=== PATIENT | male | born 2000 | race Caucasian/White ===

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

== ENCOUNTER 2021-02-20 22:37 | Inpatient (IN) | payer OTHER ==
[~2021-02-20] VITALS: Ht 180.3 cm; Wt 71.0 kg
[~2021-02-20 22:37] MED LIST: ANUS25SU PR
[2021-02-20] MEDS ORDERED: ISOVUE-370 76% 100ML VIAL As Ordered ONE (23:10)
--- NOTE | 2021-02-20 23:47 | REPVR ---
PROCEDURE INFORMATION: Exam: CT Cervical Spine Without Contrast Exam date and time: 02/20/2021 10:41 PM Age: 20 years old Clinical indication: Injury or trauma; Other: Near hanging; Constriction/strangulation TECHNIQUE: Imaging protocol: Computed tomography images of the cervical spine without contrast. Radiation optimization: All CT scans at this facility use at least one of these dose optimization techniques: automated exposure control; mA and/or kV adjustment per patient size (includes targeted exams where dose is matched to clinical indication); or iterative reconstruction. COMPARISON: No relevant prior studies available. FINDINGS: Bones/joints: Vertebral body height and AP alignment is preserved. No acute cervical spine fracture. Discs/Spinal canal/Neural foramina: No definite significant central canal stenosis within limitations of technique. Lungs: Lung apices are normal. Pleural spaces: No visible pneumothorax. Soft tissues: Unremarkable. IMPRESSION: No acute cervical spine fracture. Electronically signed by: David Goodson On 02/20/2021 23:46:51 PM
--- NOTE | 2021-02-20 23:49 | REPVR ---
PROCEDURE INFORMATION: Exam: CT Angiography Neck With Contrast Exam date and time: 02/20/2021 10:41 PM Age: 20 years old Clinical indication: Injury or trauma; Other: Near hang; Constriction/strangulation; Additional info: Near hanging TECHNIQUE: Imaging protocol: Computed tomography angiography of the neck with contrast. 3D rendering (Not supervised by radiologist): MIP and/or 3D reconstructed images were created by the technologist. Radiation optimization: All CT scans at this facility use at least one of these dose optimization techniques: automated exposure control; mA and/or kV adjustment per patient size (includes targeted exams where dose is matched to clinical indication); or iterative reconstruction. Contrast material: ISO; Contrast volume: 75 ml; Contrast route: INTRAVENOUS (IV); COMPARISON: CT Spine,cervical w/o contrast 02/20/2021 11:17 PM FINDINGS: Right common carotid artery: No stenosis. No dissection or occlusion. Right internal carotid artery: No stenosis of the extracranial segment. No dissection or occlusion. Right external carotid artery: No occlusion or stenosis of the origin. Left common carotid artery: No stenosis. No dissection or occlusion. Left internal carotid artery: No stenosis of the extracranial segment. No dissection or occlusion. Left external carotid artery: No occlusion or stenosis of the origin. Right vertebral artery: No stenosis. No dissection or occlusion. Left vertebral artery: No stenosis. No dissection or occlusion. Soft tissues: Normal. No significant soft tissue swelling. Bones/joints: No acute fracture. IMPRESSION: No acute vascular injury. REFERENCES: NASCET CRITERIA. The degree of internal carotid artery stenosis is based on NASCET criteria. Normal is no stenosis. Mild is less than 50% stenosis. Moderate is 50-69% stenosis. Severe is 70% to 99% stenosis. Total occlusion is no detectable patent lumen. Electronically signed by: David Goodson On 02/20/2021 23:48:53 PM
--- NOTE | 2021-02-20 23:49 | REPVR ---
PROCEDURE INFORMATION: Exam: CT Head Without Contrast Exam date and time: 02/20/2021 10:41 PM Age: 20 years old Clinical indication: Pain; Other: Near hanging TECHNIQUE: Imaging protocol: Computed tomography of the head without contrast. Radiation optimization: All CT scans at this facility use at least one of these dose optimization techniques: automated exposure control; mA and/or kV adjustment per patient size (includes targeted exams where dose is matched to clinical indication); or iterative reconstruction. COMPARISON: No relevant prior studies available. FINDINGS: Brain: Normal. No hemorrhage. Unremarkable white matter. No mass effect. Cerebral ventricles: No ventriculomegaly. Paranasal sinuses: Visualized sinuses are unremarkable. No fluid levels. Mastoid air cells: Visualized mastoid air cells are well aerated. Bones/joints: Unremarkable. No acute fracture. Soft tissues: Unremarkable. IMPRESSION: No acute intracranial abnormality. Electronically signed by: David Goodson On 02/20/2021 23:48:41 PM
[2021-02-21 00:37] LABS: HEMOGLOBIN 17.1 g/dl (13.5-17.5); MEAN CORPUSCULAR HGB CONC 33.5 g/dl (32.0-36.5); MEAN CORPUSCULAR VOLUME 92.6 fl (80.0-96.0); PLATELET COUNT, AUTOMATED 206 10^3/uL (150-450); RED BLOOD COUNT 5.51 10^6/uL (4.30-6.10); WHITE BLOOD COUNT 9.8 10^3/uL (4.0-10.0)
[2021-02-21 01:32] LABS: AMPHETAMINES LEVEL URINE NEGATIVE (NEGATIVE); BARBITURATES URINE NEGATIVE (NEGATIVE); BENZODIAZEPINES URINE NEGATIVE (NEGATIVE); CANNABINOIDS URINE NEGATIVE (NEGATIVE); COCAINE METABOLITE URINE NEGATIVE (NEGATIVE); METHADONE URINE NEGATIVE (NEGATIVE); OPIATES URINE NEGATIVE (NEGATIVE); PHENCYCLIDINE URINE NEGATIVE (NEGATIVE)
[2021-02-21 02:10] LABS: ACETAMINOPHEN LEVEL < 2.0 UG/ML (10.0-30.0); ALBUMIN 4.1 GM/DL (3.2-5.2); ALT/SGPT 20 U/L (12-78); BILIRUBIN,DIRECT < 0.1 MG/DL (0.0-0.2); BILIRUBIN,TOTAL 0.4 MG/DL (0.2-1.0); CK-MB VALUE MASS < 1.0 NG/ML (<3.6); CPK CREATINE PHOSPHOKINASE 112 U/L (39-308); ETHYL ALCOHOL (ETHANOL) < 0.003 % (0.000-0.010); MB/CK RELATIVE INDEX 0.89 (< OR =4); SALICYLATE LEVEL < 1.7 MG/DL (5.0-30.0); TOTAL PROTEIN 7.3 GM/DL (6.4-8.2); TROPONIN I < 0.02 NG/ML (< 0.10)
[2021-02-21] MEDS ORDERED: MOM 30ML SUSPENSION UDC PO PRN (06:05)
[2021-02-21] MEDS ORDERED: MAALOX 30 ML SUSP *UDC PO PRN (06:05)
[2021-02-21] MEDS ORDERED: LORazepam 1 MG TAB PO PRN (06:05)
[2021-02-21] MEDS ORDERED: ACETAMINOPHEN TAB 650MG DOSE (2X325MG) PO PRN (06:05)
[2021-02-21] MEDS ORDERED: HOME MED LIST COMPLETE! XX SCH (06:25)
--- NOTE | 2021-02-21 06:25 | ECGEPIP ---
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
[2021-02-21 07:00] LABS: RSV AMPLIFICATION NEGATIVE (NEGATIVE)
[2021-02-21 08:32] VITALS: BP 121/63
[2021-02-21] MEDS: SERTRALINE HCL 50 MG TAB PO SCH (09:00)
--- NOTE | 2021-02-21 11:41 | MHHPEPDOC ---
General Date Of Admission: Feb 21, 2021 Legal Status: 9.39 Chief Complaint "I took the pills to kill myself" History of Present Illness HISTORY OF THE PRESENT ILLNESS: Patient is a 20 -year-old , male, with no past psychiatric history who presents after attempting suicide last Saturday night, tried to take 50-60 allergy pills and didn't tell anyone, then next morning went into the bathroom and hung himself, reports was hanging, tied a blanket around a curtain rohan, states his roommate found him, "I was half unconscious and he brought me down". Reports ongoing depression for 2 weeks, wi th helplessness, hopelessness, feels stuck, anhedonia, states he doesn't enjoy anything he does, states it's unclear what triggered his depression, and unsure if related to his stressors. Patient is withdrawn with avoidant eye contact, talks in monotone, slowed voice and speech is non-spontaneous. Has been reporting suicidal thoughts with intent and plan for 2 weeks and feels he cannot shake the feeling. Reports "alot of stressors"; "I feel I don't have a purpose, my mother is getting surgery, got into a fight with my dad because I didn't go [place] for [place] leave, I visited my brother in [facility] instead", states he does not enjoy anything including going to work, and if he felt better would want to stick with his work. Psychiatric Review of Systems Depression (2 or more weeks): depressed mood, anhedonia, insomnia/hypersomnia, feelings of excess/guilt, feelings of worthlesness, decreased energy, difficulty concentrating, appetite changes ("eating less"), psychomotor changes, suicidal thoughts Amy (4 or more days of): denies Psychosis: denies PTSD: denies Anxiety: denies Anxiety/ 6 months or more of: sleep disturbance Past Psychiatric History Previous Psychiatric Diagnosis: denies Previous Psychiatric Admissions: denies Suicide Attempts: denies, christofer history of SI prior to 2 weeks before this admission Psychiatric Follow-up: none, no Psychiatric medications: denies Past Medical History Medical Problems denies, reports gets hives when running, possible cold urticaria Head Injury: No Seizures: No Hospitalizations: No Surgeries: No Family Medical/Psychiatric HX Medical Problems father DM Psychiatric Disorders: No Addiction: No Suicide Attemps/Completions: No Addiction History denies Social History Childhood: Grew up in [facility], moved [place] the [place] at age 13 w/ mother, raised by mother and father, still in [place], joined in October 2019, 3 older siblings Abuse/Trauma:denies Current Living Situation: [place] alone Education: highschool Employment: [employer] Social Support: robert Delaney, doesn't know phone number, in phone Legal: denies Marital: never , has a robert Dickson, she is in [place] Mental Status Examination General Appearance: well groomed Build: thin Demeanor: withdrawn, guarded Eye Contact: avoidant Activity: slowed Behavior: cooperative, loss of interests, anhedonia, withdrawn Speech: clear, slow, low in volume, non-spontaneous, impoverished Mood: depressed Diagnoses Major depressive disorder, single episode, severe A-FIB/CHADSVASC A-FIB History Current/History of A-Fib/PAF?: No Current PO Anticoag Therapy: No Age/Risk Factor Scoring CHADSVASC: CHADSVASC Response (Comments) Value Age Risk Factor Age < 65 years old 0 Gender Risk Factor Male 0 Hx of CHF No 0 Hx of HTN No 0 Hx of Stroke/TIA/or VTE No 0 Hx of Diabetes No 0 Hx of Vascular Disease No 0 Total 0 Treatment Treatment ordered: NONE Reason Anticoagulant not given: Not indicated/[id number] Assessment Patient presents after multiple suicide attempts on subsequent days, by intentional overdose on Saturday before admission and then again on Saturday by hanging, was partially unconscious reportedly and colleagues brought him down. Had hung himself from a shower curtain rail with a sheet. Has been reporting worsening suicidal ideations with intent and plan for 2 weeks prior to this, does not endorse a clear trigger for depressive symptoms that have also been ongoing for 2 weeks including low mood, anhedonia, low energy, low appetite, poor sleep, hopelessness, helplessness, worthlessness and poor concentration. Denies any history of psychiatric symptoms and no depression in family, but reports some stressors he does not attribute primarily to his depression including possible stress at work, interpersonal arguments with father, concern for mother who was in the hospital in [place]. Was medically stabilized prior to admission to the [facility]. Labs are unremarkable apart apart from marginally elevated alk phos of 119. TSH within normal limits. Patient agreeable to starting sertraline 50 mg p.o. daily, number side effects were discussed including increased suicidal thoughts, serotonin syndrome, GI disturbance, allergy and other common and rare side effects. Initial Treatment Plan 1. Patient was admitted on a [9.39] status. 2. Complete history was obtained. 3. With patients permission, family will be contacted and database will be expanded. 4. Patients medication regimen will be reviewed and changed accordingly. 5. Patient will be provided with protected environment. 6. Patient will be treated with individual, group, and milieu therapies. 7. Patient will receive supportive psych-education. 8. Discharge planning will commence immediately. 9. Outpatient follow-up treatment will be strongly recommended. 10. The initial treatment plan will focus initially on: * Depression. * Risk for suicide. ESTIMATED LENGTH OF STAY: 5-10 DAYS. TIME SPENT COUNSELING AND COORDINATING INITIAL CARE: 50 minutes. Tobacco Cessation Screen If Patient is a Smoker none N/A-No Antipsychotics Vital Signs Vital Signs Date Time Temp Pulse Resp B/P (MAP) Pulse Ox O2 Delivery O2 Flow Rate FiO2 02/21/21 08:32 97.5 65 18 121/63 (82) 99 Room Air Laboratory Data 24H Labs Laboratory Tests 2 02/20/21 23:01: POC Troponin I (Misc) 0.00 02/20/21 23:02: POC Glucose (Misc Panel) 78, POC Sodium (Misc Panel) 142, POC Potassium (Misc Panel) 3.7, POC Chloride (Misc Panel) 102, POC Total CO2 (Misc Panel) 28.0H, POC Blood Urea Nitrogen (Misc Panel 22, POC Ionized Calcium (Misc Panel) 4.8, POC Creatinine (Misc Panel) 1.3, POC Hematocrit (Misc Panel) 50.0 02/21/21 00:24: Nucleated Red Blood Cells % (auto) 0.0, Total Bilirubin 0.4, Direct Bilirubin < 0.1, Aspartate Amino Transf (AST/SGOT) 19, Alanine Aminotransferase (ALT/SGPT) 20, Alkaline Phosphatase 119H, Total Creatine Kinase 112, Creatine Kinase MB < 1.0, Creatine Kinase MB Relative Index 0.89, Troponin I < 0.02, Total Protein 7.3, Albumin 4.1, Albumin/Globulin Ratio 1.3, Thyroid Stimulating Hormone (TSH) 1.950, Salicylates Level < 1.7L, Acetaminophen Level < 2.0L, Ethyl Alcohol Level < 0.003 02/21/21 01:07: Urine Opiates Screen NEGATIVE, Urine Methadone Screen NEGATIVE, Urine Barbiturates Screen NEGATIVE, Urine Phencyclidine Screen NEGATIVE, Urine Amphetamines Screen NEGATIVE, Urine Benzodiazepines Screen NEGATIVE, Urine Cocaine Metabolite Screen NEGATIVE, Urine Cannabinoids Screen NEGATIVE 02/21/21 06:02: Coronavirus (COVID-19)(PCR) NEGATIVE, Influenza Type A (RT-PCR) NEGATIVE, Influenza Type B (RT-PCR) NEGATIVE, Respiratory Syncytial Virus (PCR) NEGATIVE CBC/BMP Laboratory Tests 02/21/21 00:24 Medications No Active Prescriptions or Reported Meds Allergies Coded Allergies: No Known Allergies (Verified Allergy, Unknown, 06/10/20) KEO OTT MD Feb 21, 2021 11:41
[2021-02-21 16:16] VITALS: BP 125/57
[2021-02-22 06:20] VITALS: BP 118/58
[2021-02-22] MEDS: SERTRALINE HCL 50 MG TAB PO SCH (09:00)
--- NOTE | 2021-02-22 13:33 | MHIPNPDOC ---
[facility] Progress Note Progress Note DATE OF SERVICE: 02/22/21 HISTORY: Patient is a 20 -year-old , male, with no past psychiatric history who presents after attempting suicide last Saturday night, tried to take 5 0-60 allergy pills and didn't tell anyone, then next morning went into the bathroom and hung himself, reports was hanging, tied a blanket around a curtain rohan, states his roommate found him, "I was half unconscious and he brought me down". Reports ongoing depression for 2 weeks, with helplessness, hopelessness, feels stuck, anhedonia, states he doesn't enjoy anything he does, states it's unclear what triggered his depression, and unsure if related to his stressors. Patient is withdrawn with avoidant eye contact, talks in monotone, slowed voice and speech is non-spontaneous. Has been reporting suicidal thoughts with intent and plan for 2 weeks and feels he cannot shake the feeling. Interval: States went to 2 groups yesterday, "better than starring at the wall". States mood is "the same". States he is unsure if SI would return if discharged. Has not taken medication, reports cultural factors such as how he perceives possibly by his family, the for taking medication, also concerned about side effects which we have previously discussed and want to review them again, including SI and those under age 25, GI distress, nausea, sexual side effects, serotonin syndrome which is rare and other common rare side effects. VITAL SIGNS: See below. NEW TEST RESULTS: None CURRENT MEDICATIONS: See below. MENTAL STATUS EXAMINATION: Patient is a 20-year old male, who is in no acute distress, avoiding eye contact and looking down the floor, withdrawn, good hygiene, appears stated age Speech: Is slowed, nonspontaneous, impoverished Language skills are good. Thought processes including: Linear, logical, slowed, possible thought blocking. Thought content: Endorses concerns if he leaves, continues to report depression, feelings of regret, unsure if he has vague suicidal thoughts. Abstract reasoning, and computation: Fair description of associations: Normal. Description of abnormal or psychotic thoughts: Denies. Judgment: Poor. Insight: Poor. Orientation: x4 Recent and remote memory: intact Attention span and concentration: decreased Language: nigerian Fund of knowledge: poor Mood: "I feel regret". Affect: depressed, melancholic, withdrawn, mood con gruent, appropriate DIAGNOSES: Major depressive disorder, single episode, severe ASSESSMENT: Patient continues to be depressed, withdrawn, melancholic with low energy and symptoms of reported anhedonia, and reservations of taking the medication due to concerns of how he be perceived by his peers at work, possibly by family members, also had concerns about side effects as he does not have any history of taking medications, these were reviewed with him and he was educated on side effects, versus benefits versus risks of not taking the medication including risk for suicide. Patient does not contract for safety if discharged, despite this past when he will be able to leave. MANAGEMENT PLAN: Ordered a one-time dose of 50 mg sertraline to take today, and continue on the medication on subsequent days. TIME SPENT: 15 minutes. Vital Signs Vital Signs Date Time Temp Pulse Resp B/P (MAP) Pulse Ox O2 Delivery O2 Flow Rate FiO2 02/22/21 06:20 98.4 70 12 118/58 (78) 100 Room Air Current Medications Current Medications Medications (Trade) Dose Ordered Sig/Rozina Route PRN Reason Start Time Stop Time Status Last Admin Dose Admin Acetaminophen (Tylenol Tab) 650 mg Q6HP PRN PO HEADACHE or MILD DISCOMFORT 02/21/21 06:05 Al Hydrox/Mg Hydrox/Simethicone (Mylanta) 30 ml Q4HP PRN PO HEARTBURN/INDIGESTION 02/21/21 06:05 Home Med (Home Med List Complete!) ASDIRECTED XX 02/21/21 06:25 02/21/21 06:26 DC Hydroxyzine HCl (Atarax) 50 mg Q4HP PRN PO ANXIETY/AGITATION 02/21/21 11:35 Lorazepam (Ativan) 1 mg Q6HP PRN PO ANXIETY 02/21/21 06:05 Cancel Magnesium Hydroxide (Milk Of Magnesia) 30 ml DAILYPRN PRN PO CONSTIPATION 02/21/21 06:05 Sertraline HCl (Zoloft) 50 mg DAILY PO 02/21/21 09:00 Trazodone HCl (Desyrel) 50 mg QHSP PRN PO INSOMNIA 02/21/21 06:05 Allergies Coded Allergies: No Known Allergies (Verified Allergy, Unknown, 06/10/20) KEO OTT MD Feb 22, 2021 13:33
[2021-02-22] MEDS ORDERED: SERTRALINE HCL 50 MG TAB PO ONE (14:00)
--- NOTE | 2021-02-22 16:09 | HPEPDOC ---
[facility] Medical History & Physical Date of Admission Feb 21, 2021 Date of Service: Feb 22, 2021 History and Physical CHIEF COMPLAINT: Attempted suicide with intentional drug overdose and hanging himself in the bathroom HISTORY OF PRESENT ILLNESS: 20-year-old male with no past medical history admitted to the inpatient mental health unit after an attempted suicide attempt with intentional drug overdose, taking 50-60 allergy pills without informing anyone, and attempting to hang himself with a blanket tied around a curtain rohan, found by his roommate and brought to the emergency room. Patient has no past medical history and denies any weight gain weight loss headaches fever chills shortness of breath chest pain pressure tightness lightheadedness dizziness polyuria polydipsia polyphagia nausea vomiting diarrhea abdominal pain dysuria urgency frequency myalgias joint pains rash bright red blood per rectum melena black tarry stools. Review of system otherwise negative aside from depressive symptoms. Patient requesting HIV testing but denies any unprotected sex recently. PAST MEDICAL HISTORY: Depression PAST SURGICAL HISTORY: None SOCIAL HISTORY: No alcohol recreational drug use or tobacco use FAMILY HISTORY: Father: Father with diabetes mother alive and well ALLERGIES: Please see below. REVIEW OF SYSTEMS: 10 point review of systems negative aside from positive findings in HPI HOME MEDICATIONS: Please see below. PHYSICAL EXAMINATION: VITAL SIGNS: See below GENERAL APPEARANCE: No distress HEENT: Tongue midline moist mucous membranes no thyromegaly or cervical lymphadenopathy CARDIOVASCULAR: S1-S2 sinus rhythm LUNGS: Clear to auscultation bilaterally ABDOMEN: Positive bowel sounds soft nontender nondistended EXTREMITIES: No cyanosis clubbing or pitting edema right upper extremity tattoo LABORATORY DATA: See below. IMAGING: See below MICROBIOLOGY: Please see below. ASSESSMENT: 20-year-old male with severe depression status post intentional drug overdose and attempted hanging admitted to the inpatient mental health unit. Severe depression with attempted suicide -Attempted intentional drug overdose with allergy pills and attempted hanging -Managed by psychiatrist Request for HIV testing -Denies rash, upper respiratory infection symptoms, weight loss. -HIV screen Hospitalist service will sign off please reconsult for any acute medical issues Vital Signs Vital Signs Date Time Temp Pulse Resp B/P (MAP) Pulse Ox O2 Delivery O2 Flow Rate FiO2 02/22/21 06:20 98.4 70 12 118/58 (78) 100 Room Air Home Medications No Active Prescriptions or Reported Meds Allergies Coded Allergies: No Known Allergies (Verified Allergy, Unknown, 06/10/20) A-FIB/CHADSVASC A-FIB History Current/History of A-Fib/PAF?: No Current PO Anticoag Therapy: No Age/Risk Factor Scoring CHADSVASC: CHADSVASC Response (Comments) Value Age Risk Factor Age < 65 years old 0 Gender Risk Factor Male 0 Hx of CHF No 0 Hx of HTN No 0 Hx of Stroke/TIA/or VTE No 0 Hx of Diabetes No 0 Hx of Vascular Disease No 0 Total 0 Treatment Treatment ordered: NONE JEWEL ALEX MD Feb 22, 2021 16:09
[2021-02-22 16:29] VITALS: BP 133/74
[2021-02-23 07:07] VITALS: BP 128/58
[2021-02-23] MEDS: SERTRALINE HCL 50 MG TAB PO SCH (08:12)
[2021-02-23 10:28] LABS: HIV 1&2 SCREEN CENTAUR NEGATIVE (NEGATIVE)
--- NOTE | 2021-02-23 13:51 | MHIPNPDOC ---
[facility] Progress Note Progress Note DATE OF SERVICE: 02/23/21 HISTORY: Patient is a 20 -year-old , male, with no past psychiatric history who presents after attempting suicide last Saturday night, tried to take 5 0-60 allergy pills and didn't tell anyone, then next morning went into the bathroom and hung himself, reports was hanging, tied a blanket around a curtain rohan, states his roommate found him, "I was half unconscious and he brought me down". Reports ongoing depression for 2 weeks, with helplessness, hopelessness, feels stuck, anhedonia, states he doesn't enjoy anything he does, states it's unclear what triggered his depression, and unsure if related to his stressors. Patient is withdrawn with avoidant eye contact, talks in monotone, slowed voice and speech is non-spontaneous. Has been reporting suicidal thoughts with intent and plan for 2 weeks and feels he cannot shake the feeling. Interval: Patient states mood is pretty good, environment makes him feel safe, but is unclear if if he feels safe leaving the unit, reports has been doing calisthenics to keep himself in shape, states mood is little bit more elevated, energetic, states he feels a little bit "hype" and says he took the medication late afternoon yesterday and interfered with sleep, states today feels a little bit better when taking early in the morning, otherwise denies side effects. Encouraged to take trazodone if sleep hygiene measures are not sufficient. VITAL SIGNS: See below. NEW TEST RESULTS: None CURRENT MEDICATIONS: See below. MENTAL STATUS EXAMINATION: Patient is a 20-year old male, who is in no acute distress, continues to have avoidant eye contact and looking down the floor, somewhat less withdrawn, good hygiene, appears stated age Speech: Is somewhat slowed, spontaneous, decreased amount Language skills are good. Thought processes including: Linear, logical, continues to be slowed, possible thought blocking. Thought content: Endorses concerns if he leaves, continues to report depression, feelings of regret for his suicidal actions. Abstract reasoning, and computation: Fair description of associations: Normal. Description of abnormal or psychotic thoughts: Denies. Judgment: Poor. Insight: Poor. Orientation: x4 Recent and remote memory: intact Attention span and concentration: decreased Language: yoruba Fund of knowledge: poor Mood: "Pretty good". Affect: depressed, melancholic, withdrawn, mood incongruent, appropriate DIAGNOSES: Major depressive disorder, single episode, severe ASSESSMENT: Patient continues to have symptoms of depression, although endorses feelings his mood is somewhat improved in the calm environment of the inpatient unit, feels that the medication has helped with energy, but has had some issues with sleep, encouraged to take trazodone as needed for sleep if sleep hygiene measures are insufficient. Otherwise denies medication side effects or acute physical complaints, is engaged in calisthenic physical exercise in his room reportedly, also went to 3 groups yesterday. Per collateral from command they are concerned about patient's safety and feel that he could use an extended period of stay. MANAGEMENT PLAN: Continue 50 mg sertraline daily, patient wants to start on this single medication regimen prior to augmenting with other medications. TIME SPENT: 15 minutes. Vital Signs Vital Signs Date Time Temp Pulse Resp B/P (MAP) Pulse Ox O2 Delivery O2 Flow Rate FiO2 02/23/21 07:07 97.3 62 20 128/58 (81) 97 Room Air Current Medications Current Medications Medications (Trade) Dose Ordered Sig/Rozina Route PRN Reason Start Time Stop Time Status Last Admin Dose Admin Acetaminophen (Tylenol Tab) 650 mg Q6HP PRN PO HEADACHE or MILD DISCOMFORT 02/21/21 06:05 Al Hydrox/Mg Hydrox/Simethicone (Mylanta) 30 ml Q4HP PRN PO HEARTBURN/INDIGESTION 02/21/21 06:05 Home Med (Home Med List Complete!) ASDIRECTED XX 02/21/21 06:25 02/21/21 06:26 DC Hydroxyzine HCl (Atarax) 50 mg Q4HP PRN PO ANXIETY/AGITATION 02/21/21 11:35 Lorazepam (Ativan) 1 mg Q6HP PRN PO ANXIETY 02/21/21 06:05 Cancel Magnesium Hydroxide (Milk Of Magnesia) 30 ml DAILYPRN PRN PO CONSTIPATION 02/21/21 06:05 Sertraline HCl (Zoloft) 50 mg DAILY PO 02/21/21 09:00 02/23/21 08:12 Trazodone HCl (Desyrel) 50 mg QHSP PRN PO INSOMNIA 02/21/21 06:05 Allergies Coded Allergies: No Known Allergies (Verified Allergy, Unknown, 06/10/20) KEO OTT MD Feb 23, 2021 13:51
[2021-02-23 15:31] VITALS: BP 110/80
[2021-02-23] MEDS: traZODone 50 MG TAB PO PRN (23:45)
[2021-02-24 06:36] VITALS: BP 132/63
[2021-02-24] MEDS: SERTRALINE HCL 50 MG TAB PO SCH (08:24)
--- NOTE | 2021-02-24 15:40 | MHIPNPDOC ---
[facility] Progress Note Progress Note DATE OF SERVICE: 02/24/21 HISTORY: Patient is a 20 -year-old , male, with no past psychiatric history who presents after attempting suicide last Saturday night, tried to take 5 0-60 allergy pills and didn't tell anyone, then next morning went into the bathroom and hung himself, reports was hanging, tied a blanket around a curtain rohan, states his roommate found him, "I was half unconscious and he brought me down". Reports ongoing depression for 2 weeks, with helplessness, hopelessness, feels stuck, anhedonia, states he doesn't enjoy anything he does, states it's unclear what triggered his depression, and unsure if related to his stressors. Patient is withdrawn with avoidant eye contact, talks in monotone, slowed voice and speech is non-spontaneous. Has been reporting suicidal thoughts with intent and plan for 2 weeks and feels he cannot shake the feeling. Interval: Patient was seen this morning, was lying but not going to groups, states was being lazy, did not sleep well last night, reports he is used to staying up late at work and works out later into the evening which may interfere sleep, had a discussion about sleep hygiene, medications, reports having mild headache but apart from that no side effects, reports has improved day-to-day since arriving to the unit, and agrees to as needed Tylenol if needed, refuse long-term treatment, states mood is improving, however appears dysthymic, withdrawn, flat. VITAL SIGNS: See below. NEW TEST RESULTS: None CURRENT MEDICATIONS: See below. MENTAL STATUS EXAMINATION: Patient is a 20-year old male, who is in no acute distress, continues to have avoidant eye contact at times, somewhat less withdrawn, good hygiene, appears stated age Speech: Is somewhat slowed, nonspontaneous, decreased amount Language skills are good. Thought processes including: Linear, logical, continues to be slowed, possible thought blocking. Thought content: Endorses concerns if he leaves, continues to report depression, feelings of regret for his suicidal actions. Abstract reasoning, and computation: Fair description of associations: Normal. Description of abnormal or psychotic thoughts: Denies. Judgment: Poor. Insight: Poor. Orientation: x4 Recent and remote memory: intact Attention span and concentration: decreased Language: estonian Fund of knowledge: poor Mood: "good". Affect: Continues to be depressed, melancholic, withdrawn, mood incongruent, appropriate DIAGNOSES: Major depressive disorder, single episode, severe ASSESSMENT: Patient continues to appear somewhat flat, withdrawn, anhedonic, but states mood is improving on medication. Due to high risk of admission with double suicide attempts by various means continues to require time on the unit for acute stabilization, presents high risk for safety, reports girlfriend is in [place] and has not told her about his admission because he does not want to scare her till she returns to the . MANAGEMENT PLAN: Continue 50 mg sertraline daily, patient wants to start on this single medication regimen prior to augmenting with other medications. Refuses medication augmentations at this time, refuse long-term treatment through the . TIME SPENT: 15 minutes. Vital Signs Vital Signs Date Time Temp Pulse Resp B/P (MAP) Pulse Ox O2 Delivery O2 Flow Rate FiO2 02/24/21 06:36 97.2 62 14 132/63 (86) 97 Room Air Current Medications Current Medications Medications (Trade) Dose Ordered Sig/Rozina Route PRN Reason Start Time Stop Time Status Last Admin Dose Admin Acetaminophen (Tylenol Tab) 650 mg Q6HP PRN PO HEADACHE or MILD DISCOMFORT 02/21/21 06:05 Al Hydrox/Mg Hydrox/Simethicone (Mylanta) 30 ml Q4HP PRN PO HEARTBURN/INDIGESTION 02/21/21 06:05 Home Med (Home Med List Complete!) ASDIRECTED XX 02/21/21 06:25 02/21/21 06:26 DC Hydroxyzine HCl (Atarax) 50 mg Q4HP PRN PO ANXIETY/AGITATION 02/21/21 11:35 Lorazepam (Ativan) 1 mg Q6HP PRN PO ANXIETY 02/21/21 06:05 Cancel Magnesium Hydroxide (Milk Of Magnesia) 30 ml DAILYPRN PRN PO CONSTIPATION 02/21/21 06:05 Sertraline HCl (Zoloft) 50 mg DAILY PO 02/21/21 09:00 02/24/21 08:24 Trazodone HCl (Desyrel) 50 mg QHSP PRN PO INSOMNIA 02/21/21 06:05 02/23/21 23:45 Allergies Coded Allergies: No Known Allergies (Verified Allergy, Unknown, 06/10/20) KEO OTT MD Feb 24, 2021 15:40
[2021-02-24 16:13] VITALS: BP 118/60
[2021-02-25 06:52] VITALS: BP 120/72
[2021-02-25] MEDS: SERTRALINE HCL 50 MG TAB PO SCH (09:04)
[2021-02-25 16:24] VITALS: BP 143/65
--- NOTE | 2021-02-25 18:57 | MHIPNPDOC ---
[facility] Progress Note Progress Note DATE OF SERVICE: 02/25/21 HISTORY:As per previous notes: " Patient is a 20 -year-old , male, with no past psychiatric history who presents after attempting suicide last Saturday night, tried to take 50-60 allergy pills and didn't tell anyone, then next morning went into the bathroom and hung himself, reports was hanging, tied a blanket around a curtain rohan, states his roommate found him, "I was half unconscious and he brought me down". Reports ongoing depression for 2 weeks, with helplessness, hopelessness, feels stuck, anhedonia, states he doesn't enjoy anything he does, states it's unclear what triggered his depression, and unsure if related to his stressors. Patient is withdrawn with avoidant eye contact, talks in monotone, slowed voice and speech is non-spontaneous. Has been reporting suicidal thoughts with intent and plan for 2 weeks and feels he cannot shake the feeling. " Interval: History: e says he doesn't know what has triggered his recent suicide attempt. He says he started feeling "bored", he was not enjoying life and that's when he decided to kill himself. He says a paternal uncle committed suicide. He says he keeps in touch with his family and his GF, he is allowed to use his cell to call them. He says the day he took the pills he had planned on doing this. He tells me a friend saved him, he is thankful to be alive. VITAL SIGNS: See below. NEW TEST RESULTS: None CURRENT MEDICATIONS: See below. MENTAL STATUS EXAMINATION: Patient is a 20-year old male, who is in no acute distress, continues to have avoidant eye contact at times, somewhat less withdrawn, good hygiene, appears stated age Speech: Is somewhat slowed, spontaneous, fluent, but this was not the case at the beginning of the interview Language skills are good. Thought processes including: Linear, logical, a little slow, not thought blocking observed Thought content: He denies SI, still endorses depression but at the same time he says today he started feeling better. Abstract reasoning, and computation: Fair description of associations: Normal. Description of abnormal or psychotic thoughts: Denies. Judgment: Improving Insight: Improving. Orientation: x4 Recent and remote memory: intact Attention span and concentration: fair Language: icelandic Fund of knowledge: under average Mood: "OK". Affect: Mildly constricted but at times is a little reactive, sad, anxious DIAGNOSES: Major depressive disorder, single episode, severe ASSESSMENT: Patient says he has been stable, he says he talked to his GF today, he felt good after he spoke with her. He denies feeling suicidal today, says he is mirian and thankful to be alive. MANAGEMENT PLAN: Continue 50 mg Sertraline daily, he refuses an increase in his medication. Will continue to monitor TIME SPENT: 15 minutes. Vital Signs Vital Signs Date Time Temp Pulse Resp B/P (MAP) Pulse Ox O2 Delivery O2 Flow Rate FiO2 02/25/21 16:24 98.0 80 18 143/65 (91) 02/25/21 06:52 Room Air 02/24/21 16:13 98 Current Medications Current Medications Medications (Trade) Dose Ordered Sig/Rozina Route PRN Reason Start Time Stop Time Status Last Admin Dose Admin Acetaminophen (Tylenol Tab) 650 mg Q6HP PRN PO HEADACHE or MILD DISCOMFORT 02/21/21 06:05 Al Hydrox/Mg Hydrox/Simethicone (Mylanta) 30 ml Q4HP PRN PO HEARTBURN/INDIGESTION 02/21/21 06:05 Home Med (Home Med List Complete!) ASDIRECTED XX 02/21/21 06:25 02/21/21 06:26 DC Hydroxyzine HCl (Atarax) 50 mg Q4HP PRN PO ANXIETY/AGITATION 02/21/21 11:35 Lorazepam (Ativan) 1 mg Q6HP PRN PO ANXIETY 02/21/21 06:05 Cancel Magnesium Hydroxide (Milk Of Magnesia) 30 ml DAILYPRN PRN PO CONSTIPATION 02/21/21 06:05 Sertraline HCl (Zoloft) 50 mg DAILY PO 02/21/21 09:00 02/25/21 09:04 Trazodone HCl (Desyrel) 50 mg QHSP PRN PO INSOMNIA 02/21/21 06:05 02/23/21 23:45 Allergies Coded Allergies: No Known Allergies (Verified Allergy, Unknown, 06/10/20) ORLANDO MILLER MD Feb 25, 2021 18:57
[2021-02-26] MEDS: hydrOXYzine 50 MG TAB PO PRN ×2 (01:04→22:11)
[2021-02-26] MEDS: traZODone 50 MG TAB PO PRN ×2 (01:04→22:11)
[2021-02-26 07:07] VITALS: BP 111/53
[2021-02-26] MEDS: SERTRALINE HCL 50 MG TAB PO SCH (08:25)
[2021-02-26 16:20] VITALS: BP 131/62
[2021-02-27 06:53] VITALS: BP 114/62
[2021-02-27] MEDS: SERTRALINE HCL 50 MG TAB PO SCH (09:47)
--- NOTE | 2021-02-27 12:25 | MHIPNPDOC ---
[facility] Progress Note Progress Note DATE OF SERVICE: 02/27/21 HISTORY: Patient is a 20 -year-old , male, with no past psychiatric history who presents after attempting suicide last Saturday night, tried to take 50-60 allergy pills and didn't tell anyone, then next morning went into the bathroom and hung himself, reports was hanging, tied a blanket around a curtain rohan, states his roommate found him, "I was half unconscious and he brought me down". Reports ongoing depression for 2 weeks, with helplessness, hopelessness, feels stuck, anhedonia, states he doesn't enjoy anything he does, states it's unclear what triggered his depression, and unsure if related to his stressors. Patient is withdrawn with avoidant eye contact, talks in monotone, slowed voice and speech is non-spontaneous. Has been reporting suicidal thoughts with intent and plan for 2 weeks and feels he cannot shake the feeling. Interval: Patient was seen lying in his bed in the a.m., has been attending a [employer] groups, states he sleeps in because he stays up late and plays chess with one of the other patients on the unit, encouraged to have a normal sleep schedule, discussed sleep hygiene, reports tolerates the medication well, does not feel overly energetic, denies other side effects, states his mood is improved, has also noticed that he is much improved concentration allows him to be engaged in activities such as chess, and that is energy is no longer low. States I am excited, but a little anxious to get out of here and do many things, reports has been talking to his girlfriend back home is more engaged in conversations, wants to go to the gym when he leaves and take up the chest as a hobby, hygiene is good and reports took a shower, appetite is normal. No acute physical complaints. VITAL SIGNS: See below. NEW TEST RESULTS: None CURRENT MEDICATIONS: See below. MENTAL STATUS EXAMINATION: Patient is a 20-year old male, who is in no acute distress, continues to improved eye contact, more talkative, good hygiene, appears stated age Speech: Is spontaneous, normal amount, lower volume Language skills are good. Thought processes including: Linear, logical, goal-directed. Thought content: No longer endorses concern if he leaves, denies any SI, intent or plan. Denies any homicidal ideation, intent or plan. Has been making goals while on the unit and attending groups. Abstract reasoning, and computation: Fair description of associations: Normal. Description of abnormal or psychotic thoughts: Denies. Judgment: Improving, fair Insight: Good Orientation: x4 Recent and remote memory: intact Attention span and concentration: decreased Language: ecuadorean Fund of knowledge: Average based on interview Mood: "I am excited, but also a little anxious". Affect: No longer appears me lancholic, mildly constricted, euthymic, appropriate, mood congruent DIAGNOSES: Major depressive disorder, single episode, severe ASSESSMENT: Patient continues to improve on unit with medication reportedly improving energy, concentration, anhedonia. Reports he feels more talkative engaged in conversations with others, activities including playing chess, which he wants to take up as a hobby when he leaves, has been working out more, denies any side effects from medication or acute physical complaints. Possible discharge tomorrow if continues to improve. MANAGEMENT PLAN: Continue 50 mg sertraline daily, well-tolerated. Refuses medication augmentations at this time, refuse long-term treatment through the , despite being routinely offered. TIME SPENT: 20 minutes. Vital Signs Vital Signs Date Time Temp Pulse Resp B/P (MAP) Pulse Ox O2 Delivery O2 Flow Rate FiO2 02/27/21 06:53 97.9 65 16 114/62 (79) 97 Room Air Current Medications Current Medications Medications (Trade) Dose Ordered Sig/Rozina Route PRN Reason Start Time Stop Time Status Last Admin Dose Admin Acetaminophen (Tylenol Tab) 650 mg Q6HP PRN PO HEADACHE or MILD DISCOMFORT 02/21/21 06:05 Al Hydrox/Mg Hydrox/Simethicone (Mylanta) 30 ml Q4HP PRN PO HEARTBURN/INDIGESTION 02/21/21 06:05 Home Med (Home Med List Complete!) ASDIRECTED XX 02/21/21 06:25 02/21/21 06:26 DC Hydroxyzine HCl (Atarax) 50 mg Q4HP PRN PO ANXIETY/AGITATION 02/21/21 11:35 02/26/21 22:11 Lorazepam (Ativan) 1 mg Q6HP PRN PO ANXIETY 02/21/21 06:05 Cancel Magnesium Hydroxide (Milk Of Magnesia) 30 ml DAILYPRN PRN PO CONSTIPATION 10/26/21 06:05 Sertraline HCl (Zoloft) 50 mg DAILY PO 02/21/21 09:00 02/27/21 09:47 Trazodone HCl (Desyrel) 50 mg QHSP PRN PO INSOMNIA 02/21/21 06:05 02/26/21 22:11 Allergies Coded Allergies: No Known Allergies (Verified Allergy, Unknown, 06/10/20) KEO OTT MD Feb 27, 2021 12:25
[2021-02-27 15:56] VITALS: BP 136/82
[2021-02-27] MEDS: traZODone 50 MG TAB PO PRN (22:00)
[2021-02-27] MEDS: hydrOXYzine 50 MG TAB PO PRN (22:00)
[2021-02-28 07:11] VITALS: BP 107/65
[2021-02-28] MEDS: SERTRALINE HCL 50 MG TAB PO SCH (08:25)
[2021-02-28] MEDS ORDERED: TRAZ-252 PO (08:59)
[2021-02-28] MEDS ORDERED: SERT50TA29 PO (08:59)
[2021-02-28] MEDS ORDERED: HYDR50TA70 PO (08:59)
--- NOTE | 2021-02-28 13:30 | MHDSPDOC ---
[facility] Discharge Summary Discharge Summary DATE OF ADMISSION: Feb 21, 2021 at 06:01 DATE OF DISCHARGE: Feb 28, 2021 at 12:56 Discharge diagnoses: Major depressive disorder, single episode, severe Reason for admission: Patient is a 20 -year-old , male, with no past psychiatric history who presents after attempting suicide last Saturday night, tried to take 50-60 allergy pills and didn't tell anyone, then next morning went into the bathroom and hung himself, reports was hanging, tied a blanket around a curtain rohan, states his roommate found him, "I was half unconscious and he brought me down". Reports ongoing depression for 2 weeks, with helplessness, hopelessness, feels stuck, anhedonia, states he doesn't enjoy anything he does, states it's unclear what triggered his depression, and unsure if related to his stressors. Patient is withdrawn with avoidant eye contact, talks in monotone, slowed voice and speech is non-spontaneous. Has been reporting suicidal thoughts with intent and plan for 2 weeks and feels he cannot shake the feeling. Vital signs: See below Consultants involved: See medical H&P by hospitalist Treatment and progress on the unit: Patient was admitted to the [facility] on a 9.39 legal status and was afforded the following treatment modalities: 1. Individual therapy 2. Group therapy 3. Medication management 4. Milieu therapy 5. Safe environment Hospital course: Patient was admitted to the [facility] on a 9.39 legal status. Was medically cleared prior to coming up to the [facility]. Toxicology screen was negative. Patient was started on sertraline 50 mg p.o. daily for mood and as ne eded trazodone 50 mg nightly for sleep. We discussed possibly augmenting antidepressant, but patient reported good response to medication as well as having time to develop coping skills in groups in the afternoons giving him insight into the fact that he did not feel stuck and had many things to live for including seeing his girlfriend who is in [place], [place], reported increased energy, concentration with medication and stated that he had taken up playing chess and has been working out more frequently, states he plans to continue playing chess as a hobby to keep himself [place]. Patient found medications beneficial and tolerated them well. Denies mood anxiety and intrusive thoughts which improved with treatment. Patient attended groups daily during stay. Patient symptoms improved with treatment. On day of discharge patient denied depression, anxiety, insomnia, suicidal or homicidal ideations intent or plan, hallucinations, delusions. Patient was discharged home with follow-up. Patient felt safe for discharge. Was offered continued stay on voluntary admission but refused. Patient endorsed that for sleep is significantly improved and that he plans to go to the gym, get a haircut and get groceries when he leaves the hospital after [place]. Denies access to weapons, safety plan carried out with treatment team. During stay denied acute physical complaints. Eye contact improved, was more engaged in interview and nursing notes reflected lack of suicidal ideation, intent or plan ongoing evaluations on the days prior to discharge, patient also contracted for safety. Discharge assessment: On today's interview patient is alert and oriented, dressed appropriately. Smiles on approach and is pleasant and engaged on interview. Patient was able to laugh, joke, states sleep is really good, reports mood 9 of 10, is not elevated or hypomanic, is future oriented. Improved eye contact hygiene and grooming is well-kept. Denies depression and anxiety. Denies suicidal homicidal ideation, intent or planning. Denies and is not observed with anita or psychotic symptoms of delusions, hallucinations, bizarre thinking, obsessions, paranoia, ruminations, illogical thoughts, flight of ideas or having poor insight or judgment. Patient has normal mentation, declines further hospitalization of voluntary status and meets criteria for discharge today, patient encouraged to return the hospital if symptoms worsen or change and encouraged to call unit if they feel they need provider's questions to be answered or help with medications or care. Some time was spent discussing future goals, ways he can keep himself safe, his safety plan, if he feels unsafe will return to the hospital or reach out for help instead of keeping his depression or suicidal thoughts to himself, [place] and plans to attend his [facility] outpatient appointments. Mental status: Patient is a 20-year old male, who is in no acute distress, continues to improved eye contact, more talkative, good hygiene, appears stated age Speech: Is spontaneous, normal amount, normal volume Language skills are good. Thought processes including: Linear, logical, goal-directed. Thought content: Denies suicidal ideations, intent or plan. Denies homicidal ideations, intent or plan. Has been making goals while on the unit and attending groups. Abstract reasoning, and computation: Good description of associations: Normal. Description of abnormal or psychotic thoughts: Denies. Judgment: fair, improved Insight: Good Orientation: x4 Recent and remote memory: intact Attention span and concentration: decreased Language: faroese Fund of knowledge: Average based on interview Mood: "Really good, 9 out of 10". Affect: Not elevated, euthymic, full, laughs also jokes, euthymic, appropriate, mood congruent, is somewhat introverted at baseline Medications on discharge: see medication reconciliation: CSSRS on discharge: Wish to be : No nonspecific active suicidal thoughts: No lifetime attempts: 2x prior to admission, tried to hang self and tried to overdose on allergy pills interrupted attempts: 1x, friends brought him down from hanging prior to admission aborted attempts: 0 preparatory acts or behavior: None Taking into consideration safety state, status, modifiable, non-modifiable risk factors patient is at low risk on discharge for suicide according to [facility] uicide evaluation. PLAN/FOLLOWUP ARRANGEMENTS: Follow Up Care Education Label * Mental Health Appt 1 * Mental Health 1st Embedded * Additional information 1ST [facility]/CT SONI,COL [id number] FTR/60 PENDING 1ST [facility]/CT SONI,COL [id number]@1000 SPEC/[address] [place] [address]/CT SONI,COL [id number]@0901 FTR/[address] [place] [address]/[place] SONI,[place] [id number]@0900 FTR/[address] [place] [address]/1BCT Kwasi PAYAN [id number]@0900 SPEC/[address] [place] [address]/CT SONI,COL [id number]@1000 FTR/60 PENDING Follow Up Care Education Label * Medical * Medical Follow Up [facility] * Established With This Provider Yes * Therapist CAPT. ORTEZ * Date Mar 13, 2021 * Time 14:40 * Address of Clinic or Practice [facility] [address] * The amount of time spent in the coordination of care for this patient was approximately 35 minutes. ETOH/Disorder Med Rx ETOH/DRUG DISORDER RX: Offrd @ d/c & pt refused Vital Signs/I&Os Vital Signs Date Time Temp Pulse Resp B/P (MAP) Pulse Ox O2 Delivery O2 Flow Rate FiO2 02/28/21 07:11 98.8 64 16 107/65 (79) 99 Room Air Medications Scheduled Sertraline HCl (Sertraline HCl) 50 Mg Tablet, 50 MG PO DAILY for mood, #7 Scheduled PRN Hydroxyzine HCl (Hydroxyzine HCl) 50 Mg Tablet, 50 MG PO Q4HP PRN for ANXIETY/AGITATION, #14 Trazodone HCl (Trazodone HCl) 50 Mg Tablet, 50 MG PO QHSP PRN for INSOMNIA, #7 Allergies Coded Allergies: No Known Allergies (Verified Allergy, Unknown, 06/10/20) KEO OTT MD Feb 28, 2021 13:30
== END 2021-02-28 12:56 | disposition home or self-care (01) | DRG 885 ==
LOC: M ED 22:37 → M ED INP 02-21 06:01 → M PSY 02-21 08:12
PROVIDERS: ADMIT Student in an Organized Health Care Education/Training Program; ATTEND Student in an Organized Health Care Education/Training Program
DX: F32.2 Major depressive disorder, single episode, severe without psychotic features (principal); Z91.51 Personal history of suicidal behavior; Z20.822 Contact with and (suspected) exposure to COVID-19